=== PATIENT | female | born 1950 | race Asian ===

== ENCOUNTER 2025-03-04 14:26 | Emergency (ER) | payer MEDICARE, SELFPAY ==
[2025-03-04 14:27] VITALS: BMI 25.3
[2025-03-04 14:42] VITALS: BP 193/72; BP 203/78; PULSE 81; RESP 18; TEMP 36.7; O2SAT 96
--- NOTE | 2025-03-04 15:10 | XR_ITS ---
Examination: Duplex scan of the upper extremity, unilateral left Date and time of exam: March 04, 2025, 1535 hours INDICATIONS: Left arm pain and swelling beginning today Technique: Duplex scan of the extremity veins using B-mode/grayscale imaging and Doppler spectral analysis and color flow Attention is directed to internal echogenicity, compression and augmentation involving these veins, color flow assessment, spectral analysis Findings: Major deep venous structures in the extremity demonstrate normal course and caliber. Flow is present in the subclavian axillary brachial basilic veins although noncompressible Radial ulnar veins are open There does appear to be thrombus in the jugular vein Impression: Positive for acute DVT in the left jugular vein..
--- NOTE | 2025-03-04 15:10 | XR_ITS ---
EXAMINATION: AP chest single view TECHNIQUE: AP portable sitting chest single view INDICATIONS: Onset left-sided chest pain today. Date and time: March 04, 2025, 1520 hours FINDINGS: Mild enlargement cardiac contour. Mild vascular congestion. No lobar pneumonia or pulmonary edema IMPRESSION: Mild vascular congestion
--- NOTE | 2025-03-04 15:13 | EDNOTE_ITS ---
ED General RME/HPI General Chief complaint: Back Pain/Injury Stated complaint: LEFT SHOULDER PAIN RADIATING TO BACK WITH FISTULA Time Seen by Provider: 03/04/25 14:51 Arrival date/time: 03/04/25 14:26 CC: Left anterior chest and left upper back pain with swelling HPI patient was lifted up at approximately Leonardo 30 today experienced the pain and swelling afterwards. Patient states pain with inhalation or movement of the left arm. Denies facial swelling swelling in the neck nausea vomiting diarrhea or right sided chest pain. 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 Patient has no other complaints Related Data Home Medications ?Medication ?Instructions ?Recorded ?Confirmed amlodipine 10 mg tablet (Norvasc) 10 mg PO QDAY #0 tab s 06/07/14 09/03/19 linagliptin 5 mg tablet (Tradjenta) 5 mg PO QDAY 11/0209/03/19 atorvastatin 20 mg tablet 20 mg PO HS 09/03/19 0 cetirizine 10 mg tablet (Zyrtec) 10 mg PO QDAY PRN All ergy Symptoms 09/03/19 09/03/19 ergocalciferol (vitamin D2) 1,250 1,250 mcg PO QWEEK 0 09/03/19 09/03/19 mcg (50,000 unit) capsule (Vitamin D2) ferrous sulfate 325 mg (65 mg 325 mg PO BID 09/03/19 0 09/03/19 iron) tablet (iron) Previous Rx's ?Medication ?Instructions ?Recorded insulin glargine 100 unit/mL 8 unit (0.08 mL) subcut H S #0 vials 09/08/19 subcutaneous solution (Lantus U-100 Insulin) oxycodone-acetaminophen 5 mg-325 1 tab PO Q6H PRN Pain Scale 09/08/19 mg tablet 4-10(Mod-Sev #10 tabs apixaban 5 mg (74 tabs) tablets in 5 mg PO BID #74 tab s 03/04/25 a dose pack (Eliquis DVT-PE Treat 30D Start) aspirin 81 mg capsule 81 mg PO QDAY #60 caps 03/04 Allergies Allergy/AdvReac Type Severity Reaction Status Date / Time codeine AdvReac Intermediate NAUSEA,SWEA Verified 03/04/25 14:29 TNG hydrocodone AdvReac Mild NAUSEA/SWEA Verified 03/04/25 14:29 TING Review of Systems Review of Systems Narrative Review of Systems: GEN: No fever, no chills, no weight loss EYES: No discharge, no visual changes, no pain HEENT: No ear pain, no congestion, no sore throat PULM: No shortness of breath, no cough, no congestion CV: No chest pain, no dyspnea on exertion, no palpitations GI: No nausea, no vomiting, no diarrhea, no pain, no constipation : No frequency, no urgency, no dysuria MUSC/SKEL: No joint pain, no back pain SKIN: No rash PSYCH: No hallucinations, no depression HEME/LYMPH: No easy bleeding or bruising tendencies NEURO: No weakness, no headache Past Medical History Past Medical History NEUROLOGIC: Negative Seizures CARDIAC: Positive Cardiac Disorders, Deep Vein Thrombosis and Hypertension; Negative Congestive Heart Failure RESPIRATORY: Negative Chronic Obstructive Pulmonary Disease (COPD) GASTROINTESTINAL: Positive Gastrointestinal Disorders and Ulcer GENITOURINARY: Positive Genitourinary Disorders and Renal Disease MUSCULOSKELETAL: Positive Musculoskeletal Disorders ENDOCRINE: Positive Endocrine Disorders, Diabetes Mellitus Type 1 and Diabetes Mellitus Type 2 HEMATOLOGIC: Positive Blood Disorders and Clotting Problems OTHER HISTORY: Positive Hospitalization and Blood Transfusions; Negative Blood Transfusion Reaction or Anesthesia Reactions Social History SMOKING STATUS: Never smoker ED Exam Narrative Physical exam: [General: Not in any acute distress Head normocephalic HEENT: Within acceptable limits Neck is supple nontender Chest equal chest rise, subtle nonerythematous edema to the left anterior chest just below the distal third of the clavicle. Nontender to palpation. Respiratory: Clear to auscultation no wheezes crackles or rubs CV: Rate rhythm is regular no murmurs rubs or clicks Abdomen is distended secondary to body habitus soft nontender no masses positive bowel sounds all 4 quadrants Back: Subtle edema in the upper back over the apex of the scapula, no e cchymosis. No CVA tenderness no spinous process tenderness from cervical spine thoracic and lumbar spine Skin: Intact no petechiae rash induration ulceration or crepitus Extremities: Moving all extremity against resistance cap refill less than 2 seconds neurosensory intact. Left upper extremity fistula clean dry and intact with good thrill. Neuro: Awake alert oriented x3 Glascow coma 15 no focal deficits] Course Quality Measures none Orders Category Date Time Status Insert IV NOW Care 03/04/25 15:22 Completed US venous doppler UE LT Stat Exams 03/04/25 15:10 Completed XR chest 1V Stat Exams 03/04/25 15:10 Completed CBC Stat Lab 03/04/25 15:19 Completed CMP [Comprehensive Metabolic Panel] Stat Lab 03/04/25 15:19 Completed PT [Prothrombin Time with INR] Stat Lab 03/04/25 15:19 Completed PTT [Partial Thromboplastin Time] Stat Lab 03/04/25 15:19 Completed Apixaban [Eliquis] Med 03/04/25 17:41 Discontinued 10 mg PO X1 ONE Vital Signs Vital signs: Vital Signs Temperature 98.1 F 03/04/25 14:42 Pulse Rate 81 03/04/25 14:42 Respiratory Rate 18 03/04/25 14:42 Blood Pressure 203/78 H 03/04/25 14:42 Pulse Oximetry (%) 96 03/04/25 14:42 Oxygen Delivery Method Room Air 03/04/25 14:42 Discharge Plan Plan Patient Disposition: HOME (Self Care) Patient condition on transfer: Stable Prescriptions/Referrals Prescriptions/Med Rec: New Eliquis DVT-PE Treat 30D Start 5 mg (74 tabs) tablets,dose pack 5 mg PO BID Qty: 74 0RF aspirin 81 mg capsule 81 mg PO QDAY Qty: 60 1RF No Action amlodipine [Norvasc] 10 MG tablet 10 mg PO QDAY Qty: 0 atorvastatin 20 mg Tablet 20 mg PO HS cetirizine [Zyrtec] 10 mg Tablet 10 mg PO QDAY PRN (Reason: Allergy Symptoms) ferrous sulfate [iron] 325 mg (65 mg iron) Tablet 325 mg PO BID ergocalciferol (vitamin D2) [Vitamin D2] 1,250 mcg (50,000 unit) Capsule 1,250 mcg PO QWEEK oxycodone-acetaminophen 5-325 mg Tablet 1 tab PO Q6H MDD 3 PRN (Reason: Pain Scale 4-10(Mod-Sev) Qty: 10 0RF Lantus U-100 Insulin 100 U/ML solution 8 unit Sub-Q HS Qty: 0 0RF Tradjenta 5 mg Tablet 5 mg PO QDAY Referrals: Sami Roldan MD [Physician, Cardiology] - In 1 week Francisca Zhang PA-C [Primary Care Provider, Family Practice] - In 1 week Problem List Clinical Impression: 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 Please notify Dr. Vale on dialysis. Please follow-up with Dr. Roldan community sports coordinator. Any bleeding that cannot be stopped with direct pressure return immediately to the emergency room for reevaluation. Education Materials: DVT Complications, DVT Dc Print Language: Estonian Stand Alone Forms: Marvin Award Info., Work/School Release, Patient Portal Info Letter MONIQUE/CHRISSY Supervising Physician MONIQUE/CHRISSY Supervising Physician: Sidney Guzman ENP [facility] Clinical Information Provided by: patient and family Medical Records reviewed [facility] Meds/Rx considered, not ordered None Labs/Rad/Tests considered, not ordered None Chronic Illness/Social Conditions Explain: ESRD dialysis on thinners secondary to DVT EKG EKG not done Labs Labs: interpreted by ia Lab(s) Interpretation(s): CBC shows no acute leukocytosis anemia thrombocytopenia Coags within acceptable limits CMP shows a BUN of 40 creatinine of 8.7 glucose at 344. Medication Administration(s) Medication Administration History Discontinued Medications Apixaban (Apixaban 2.5 Mg Tablet) 10 mg PO X1 ONE Stop: 03/04/25 17:42 Last Admin: 03/04/25 18:05 Dose: 10 mg Documented By: VERONICA
[2025-03-04 15:47] LABS: Basophils # (Auto) 0.0 Thou/mm3 (0.0-0.2); Basophils % (Auto) 0 % (0-2.5); Eosinophils # (Auto) 0.2 Thou/mm3 (0.0-0.5); Eosinophils % (Auto) 2 % (0-10); Hematocrit 36.5 % (36.0-46.0); Hemoglobin 12.2 g/dL (12.0-16.0); Immature Granulocytes Auto 0.03 Thou/mm3 (0.00-0.00); Lymphocytes # (Auto) 1.5 Thou/mm3 (1.0-4.8); Lymphocytes % (Auto) 17 % (10-50); Mean Corpuscular HGB Conc 33.4 g/dl (31.0-37.0); Mean Corpuscular Hemoglobin 31.8 pg (25.0-35.0); Mean Corpuscular Volume 95 fL (80-100); Monocytes # (Auto) 0.7 Thou/mm3 (0.0-0.8); Monocytes % (Auto) 8 % (0-12); Neutrophils # (Auto) 6.5 Thou/mm3 (1.8-7.7); Neutrophils % (Auto) 73 % (37-80); Nucleated Red Blood Cell # 0.00 Thou/mm3 (0.00-0.00); Nucleated Red Blood Cell % 0 /100 WBC (0); Platelet Count 184 Thou/mm3 (140-440); RDW Standard Deviation 48.4 fL (36.4-46.3); Red Blood Count 3.84 Miln/mm3 (4.00-5.20); White Blood Count 8.8 Thou/mm3 (3.6-11.0)
[2025-03-04 16:04] LABS: Alanine Aminotransferase 15 U/L (10-49); Albumin, Serum 4.3 gm/dL (3.4-4.8); Albumin/Globulin Ratio 1.4 (1.2-2.2); Alkaline Phosphatase 276 U/L (46-116); Anion Gap 11 (7-16); Aspartate Amino Transferase 18 U/L (0-34); BUN/Creatinine Ratio 5 Ratio (12-20); Bilirubin,Total 0.4 mg/dL (0.3-1.2); Blood Urea Nitrogen 40 mg/dL (9-23); Calcium 10.0 mg/dL (8.3-10.6); Calcium (Corrected) 10.0 mg/dL (8.5-10.1); Carbon Dioxide 30.7 mMol/L (20.0-31.0); Chloride 100 mMol/L (98-107); Creatinine (Component) 8.7 mg/dL (0.6-1.3); Estimated Creatinine Clearance 4.6 mL/min (>60); Globulin 3.1 gm/dL (2.3-3.5); Glucose 344 mg/dL (74-106); Osmolality,Calculated 306 (275-295); Potassium 3.9 mMol/L (3.4-5.1); Sodium 142 mMol/L (136-145); Total Protein 7.4 gm/dL (5.7-8.2); eGFR 4 See Note
[2025-03-04 16:27] VITALS: BP 180/63; PULSE 71; RESP 15; TEMP 36.8; O2SAT 97
[2025-03-04 16:28] LABS: INR 0.9 (0.9-1.3); Partial Thromboplastin Time 22.5 Seconds (22.0-36.0); Prothrombin Time 10.0 Seconds (9.0-12.2)
[2025-03-04 18:04] VITALS: BP 182/73; PULSE 78; RESP 15; TEMP 36.9; O2SAT 96
[2025-03-04] MEDS: APIXABAN 2.5 MG TABLET 10 MG PO (18:05)
== END 2025-03-04 18:10 | disposition home or self-care (01) ==
PROVIDERS: Registered Nurse General Practice; Emergency Provider Emergency Medicine; PCP Physician Assistant
DX: I82.C22 Chronic embolism and thrombosis of left internal jugular vein (principal); R07.89 Other chest pain; I12.0 Hypertensive chronic kidney disease with stage 5 chronic kidney disease or end stage renal disease; E11.22 Type 2 diabetes mellitus with diabetic chronic kidney disease; N18.6 End stage renal disease; Z79.01 Long term (current) use of anticoagulants; Z99.2 Dependence on renal dialysis; Z79.84 Long term (current) use of oral hypoglycemic drugs
CPT/HCPCS: 36415; 71045; 80053; 85025; 85610; 85730; 93971; 99283; A9270

== ENCOUNTER 2025-03-07 12:40 | Emergency (ER) | payer MEDICARE, MEDICAID, SELFPAY ==
[2025-03-07] VITALS (9 sets, daily range): BP systolic 94–143; BP diastolic 51–67; PULSE 51–98; RESP 16–22; TEMP 36.4–36.6; O2SAT 95–100
--- NOTE | 2025-03-07 13:17 | PC.NURSE ---
DAUGHTER AT BEDSIDE. DAUGHTER REPORTS PT WAS SEEN HERE WEDNESDAY FOR HEMATOMA TO LEFT UPPER CHEST. STATES SWELLING, BRUISING, AND PAIN ARE WORSENING. NOW RADIATING DOWN LEFT ARM. ALSO REPORTS A DVT IN THE JUGULAR VEIN. SENT HOME ON ELIQUIS AND ASPIRIN, PT ALREADY ON PLAVIX FOR PREVIOUS DVT.
--- NOTE | 2025-03-07 13:36 | XR_ITS ---
EXAMINATION: AP chest single view TECHNIQUE: Upright portable AP chest single view Date and time: March 07, 2025, 1408 hours INDICATIONS: Worsening chest pain and body swelling beginning 3 days ago. FINDINGS: Mild prominence left ventricle Blunting of the left lateral costophrenic angle No interval pneumonia or keshawn pulmonary edema Osseous structures are demineralized IMPRESSION: No interval pneumonia or pulmonary edema
--- NOTE | 2025-03-07 13:36 | EKG_ITS ---
[facility] Test Date: 2025-03-07 Pat Name: KRIS MCGHEE Department: Room: - Gender: Female Lens Block Gauger: : 1950 Requested By: Mo May Order Number: [id number] Reading MD: Mo May Measurements Intervals [place] Rate: 66 P: 60 [place]: 179 QRS: 7 QRSD: 81 T: 65 QT: 444 QTc: 468 Interpretive Statements SINUS RHYTHM WITH FREQUENT VENTRICULAR PREMATURE COMPLEXES ABNORMAL RHYTHM ECG Compared to ECG 05/13/2020 16:57:48 Ventricular premature complex(es) now present T-wave abnormality no longer present /store/S0/[id number].pdf
--- NOTE | 2025-03-07 13:37 | PD.EDWEAK ---
ED Weakness RME/HPI General Chief complaint: Weakness Stated complaint: WEAKNESS, HYPOTENSION Time Seen by Provider: 03/07/25 13:26 Arrival date/time: 03/07/25 12:40 RME / HPI RME / HPI Narrative: DR. MCCALLUM MAIN ED EVALUATION: Patient presents with 3 days after been seen post-fall with incidental left IJ venous thrombosis now with progressive painful left breast swelling. No fever, chills, vomiting, shortness of breath, and difficulty swallowing. Patient currently on combination of Eliquis and Plavix. PMH: Deep Vein Thrombosis, Hypertension, Ulcer, Renal Disease, Diabetes Mellitus Type 2 PSH: AV shunt placement LUE Allergies: Codeine, Hydrocodone Social: Non-smoker, Noo alcoholism, No illicit drug abuse Related Data Home Medications ?Medication ?Instructions ?Recorded ?Confirmed amlodipine 10 mg tablet (Norvasc) 10 mg PO QDAY #0 tabs 06/07/14 09/03/19 linagliptin 5 mg tablet (Tradjenta) 5 mg PO QDAY 11/02/17 09/03/19 atorvastatin 20 mg tablet 20 mg PO HS 09/03/19 09/03/19 cetirizine 10 mg tablet (Zyrtec) 10 mg PO QDAY PRN Allergy Symptoms 09/03/19 09/03/19 ergocalciferol (vitamin D2) 1,250 1,250 mcg PO QWEEK 09/03/19 09/03/19 mcg (50,000 unit) capsule (Vitamin D2) ferrous sulfate 325 mg (65 mg 325 mg PO BID 09/03/19 09/03/19 iron) tablet (iron) Previous Rx's ?Medication ?Instructions ?Recorded insulin glargine 100 unit/mL 8 unit (0.08 mL) subcut HS #0 vials 09/08/19 subcutaneous solution (Lantus U-100 Insulin) oxycodone-acetaminophen 5 mg-325 1 tab PO Q6H PRN Pain Scale 09/08/19 mg tablet 4-10(Mod-Sev #10 tabs apixaban 5 mg (74 tabs) tablets in 5 mg PO BID #74 tabs 03/04/25 a dose pack (Eliquis DVT-PE Treat 30D Start) aspirin 81 mg capsule 81 mg PO QDAY #60 caps 03/04/25 Allergies Allergy/AdvReac Type Severity Reaction Status Date / Time codeine AdvReac Intermediate NAUSEA,SWEA Verified 03/04/25 14:29 TNG hydrocodone AdvReac Mild NAUSEA/SWEA Verified 03/04/25 14:29 TING Review of Systems Review of Systems Systems Reviewed: All systems reviewed, normal except as documented Past Medical History Past Medical History CARDIAC: Positive Cardiac Disorders, Deep Vein Thrombosis and Hypertension GASTROINTESTINAL: Positive Gastrointestinal Disorders and Ulcer GENITOURINARY: Positive Genitourinary Disorders and Renal Disease MUSCULOSKELETAL: Positive Musculoskeletal Disorders ENDOCRINE: Positive Endocrine Disorders, Diabetes Mellitus Type 1 and Diabetes Mellitus Type 2 HEMATOLOGIC: Positive Blood Disorders and Clotting Problems OTHER HISTORY: Positive Hospitalization and Blood Transfusions Surgical History SURGICAL: Positive Knee Sx (RIGHT KNEE REPLACEMENT) ED Exam Narrative Physical exam: GEN. APPEARANCE: The patient is alert awake oriented X-3, c/o moderate left-sided upper chest pain, does not look ill/toxic. Patient has good eye contact. Patient is cooperative. VITALS: All vitals were reviewed and the pulse ox is []%, which is normal according to my interpretation HEENT: Normocephalic, atraumatic and nontender. Pupils are equal and reactive. Oral mucosa is moist. NECK: Supple, nontender, no meningismus, no JVD. There is no thyromegaly and no lymphadenopathy. CHEST: Clear disperity involving left vs right pectoralis region with marked swelling on the left if tge pectoralis insertion and extending inferiorly to mid-sternal region, noted TTP without overlying erythema, induration, or warmth, no deformity and no crepitus. CARDIOVASCULAR: Heart regular rhythm, no murmur or gallop rub or extra beats. LUNGS: Clear to auscultation bilaterally with symmetrical chest rise. No laboring tachypnea or wheezing. No intercostal subcostal retraction. No rales and no rhonchi. ABDOMEN: Soft, flat, nontender to palpation, no guarding or rebound tenderness. There are no abnormal masses palpated. No pulsatile masses or bruits. Active and normal bowel sounds. EXTREMITIES: Normal inspection and palpation. No edema. No cyanosis. Patient is able to move all 4 extremities well SKIN: Warm and dry, no rashes noted. MUSCULOSKELETAL: No lumbar or midline bony tenderness. There is no CVA tenderness. No paraspinal muscle spasm or tenderness. NEURO: Cranial nerves II through XII grossly intact. There are no focal neurologic deficits noted. GCS is 15 PSYCHIATRIC: Patient is in normal mood and affect, cooperative. LYMPHATICS: No major lymphadenopathy noted. Course Course Course Narrative: 22:35 - Dr. Hudson made aware of the patient?s HPI, PMHx, lab and/or radiology results. Discussed treatment plan. Will follow recommendations. Quality Measures none Orders Category Date Time Status CT Screening NOW Care 03/07/25 13:53 Active EKG (ED ONLY) *Do not use* NOW Care 03/07/25 13:[address] angio chest Stat Exams 03/07/25 13:52 Completed EKG (ED Only) Stat Exams 03/07/25 13:36 Draft US carotid duplex Stat Exams 03/07/25 18:11 Completed US venous doppler UE LT Stat Exams 03/07/25 19:30 Completed XR chest 1V portable Stat Exams 03/07/25 13:36 Completed B-Type Natriuretic Peptide Stat Lab 03/07/25 14:54 Completed CBC Stat Lab 03/07/25 14:54 Completed CBC Stat Lab 03/07/25 21:40 Completed Comprehensive Metabolic Panel Stat Lab 03/07/25 14:54 Completed Drug Screen,Urine Stat Lab 03/07/25 15:40 Completed Magnesium Stat Lab 03/07/25 14:54 Completed Partial Thromboplastin Time Stat Lab 03/07/25 14:54 Completed Prothrombin Time with INR Stat Lab 03/07/25 14:54 Completed Troponin I Stat Lab 03/07/25 14:54 Completed Urinalysis, C/S if Indicated Stat Lab 03/07/25 15:40 Completed Metoclopramide Inj [Reglan Inj] Med 03/07/25 19:23 Discontinued 10 mg IVP X1 ONE Morphine* Inj Med 03/07/25 19:23 Discontinued 4 mg IV X1 ONE Morphine* Inj Med 03/07/25 14:02 Discontinued 4 mg IVP X1 ONE Sodium Chloride 0.9% 250 ml [Ns] 250 ml Med 03/07/25 21:20 Discontinued IV 125 mls/hr Sodium Chloride 0.9% 250 ml [Ns] 250 ml Med 03/07/25 22:29 Pending IV 125 mls/hr Vital Signs Vital signs: Vital Signs Temperature 97.7 F 03/07/25 12:45 Pulse Rate 58 L 03/07/25 12:45 Respiratory Rate 19 03/07/25 12:45 Blood Pressure 143/59 H 03/07/25 12:45 Pulse Oximetry (%) 100 03/07/25 12:45 Oxygen Delivery Method Room Air 03/07/25 12:45 Weakness MDM Narrative MDM Narrative:: Scribe Attestation: I, Kate Tavarez, am scribing for and in the presence of Dr. Hernandez. Provider Notation: Although this document has been carefully reviewed, there may still be some phonetic and other typographical errors. These errors are purely grammatical due to imperfections in the software program and should not be construed in any way to compromise the substance of the patient's medical care during this visit. Patient presents with 3 days after been seen post-fall with incidental left IJ venous thrombosis now with progressive painful left breast swelling. No fever, chills, vomiting, shortness of breath, and difficulty swallowing. Please see PE findings. Laboratory markers, including CBC and serum chemistries, demonstrate noted drop in hemoglobin to 8.7 and creatinine at baseline. No hypokalemia evident. CTA of the chest without evidence of intrathoracic subpectoralis muscle hematoma. A compressive dressing was added and after discussion with obiee consultant, recommendations include holding anticoagulant therapy and to maintain compressive dressing with serial circumferential measurements. US of carotid unremarkable, excluding minor plaqeu, with previously noted IJ DVT resolved. LUE venous US is negative. Will check CBC and if no significant change in chest circumference, will discharge to home under daughter's care. Final diagnoses include Chest wall hematoma and Resolution of DVT. Patient data External records reviewed:: [facility] previous records (Reviewed prior ED records from 03/04/25. 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.) and EMS form Clinical information provided by:: patient and EMS Social determinants that could affect healthcare access:: none Patient has the following chronic illnesses:: Deep Vein Thrombosis, Hypertension, Ulcer, Renal Disease, Diabetes Mellitus Type 2 How is presenting disease/condition affected by chronic disease/condition?: exacerbated by Evaluation data The following diagnostics were reviewed and interpreted by me:: lab results, radiology exam(s) and EKG tracing(s) (EKG at 14:47 shows normal sinus rhythm at 66, normal axis, no ectopy, no signs of acute ischemia, per my interpretation.) Lab and/or radiology exams considered but not ordered:: None Interpretation Summary: RADIOLOGY Chest X-Ray: FINDINGS: Mild prominence left ventricle Blunting of the left lateral costophrenic angle No interval pneumonia or keshawn pulmonary edema Osseous structures are demineralized IMPRESSION: No interval pneumonia or pulmonary edema Chest CTA: Findings: Very large subpectoral mass consistent with hematoma, mediolateral dimension 11.5 cm AP dimension 4.7 cm cephalad caudad dimension at least 10.0 cm with extensive surrounding edema in the left breast including skin thickening No thoracic aortic aneurysmal dilatation Main pulmonary artery segment is enlarged to 4.2 cm, no pulmonary artery emboli No pneumothorax pneumonia or pulmonary edema No significant opacification of the left axillary or left brachial vein No visualized liver or splenic lesion No gallstones No common hepatic or common bile duct stone Atrophic kidneys sternal segments thoracic vertebral bodies intact, multiple thoracic Schmorl's nodes Ribs appear intact IMPRESSION: Very large left subpectoral chest mass consistent with hematoma, 11.5 x 4.7 x 10.0 cm with extensive surrounding edema in the left breast, clinical correlation advised Pulmonary artery hypertension Venous Doppler Study: Findings: Major deep venous structures in the extremity demonstrate normal course and caliber. There is no evidence of deep vein thrombosis. Normal color flow and spectral analysis Impression: Negative for DVT. Carotid Doppler Study: Findings: Right peak systolic velocities: Distal internal carotid artery peak systolic velocity is 0.7 M/sec Proximal internal carotid artery peak systolic velocity is 0.7 M/sec Carotid bifurcation peak systolic velocity is 0.4 M/sec External carotid artery peak systolic velocity is 0.8 M/sec Vertebral artery flow is antegrade. Left peak systolic velocities: Distal internal carotid artery peak systolic velocity is 0.5 M/sec Proximal internal carotid artery peak systolic velocity is 0.6 M/sec Carotid bifurcation peak systolic velocity is 0.5 M/sec External carotid artery peak systolic velocity is 0.6 M/sec Vertebral artery flow is antegrade Doppler waveform analysis demonstrates no spectral broadening Impression: Right internal carotid artery demonstrates 0 to 10% stenosis. Left internal carotid artery demonstrates 0 to 10% stenosis. Medications / Prescriptions Medications or Prescriptions considered but not ordered:: None Medication administrations:: Medication Administration History Sodium Chloride (Ns) 250 mls @ 125 mls/hr IV .Q2H ONE Stop: 03/08/25 00:27 Discontinued Medications Sodium Chloride (Ns) 250 mls @ 125 mls/hr IV .Q2H ROLANDO Stop: 04/06/25 21:19 Last Admin: 03/07/25 21:20 Dose: 125 mls/hr Documented By: KIMBERLEE Metoclopramide HCl (Metoclopramide Inj 5 Mg/Ml Vial 2 Ml) 10 mg IVP X1 ONE; Protocol Stop: 03/07/25 19:24 Last Admin: 03/07/25 19:43 Dose: 10 mg Documented By: ANTIONE Morphine Sulfate (Morphine Sulf Inj 4 Mg/Ml Vial) 4 mg IVP X1 ONE Stop: 03/07/25 14:03 Last Admin: 03/07/25 14:35 Dose: 4 mg Documented By: BRONWYN Comments: MED BOTTLE SCANNED AND THEN THROWN AWAY, DOCUMENTATION DID NOT SAVE. Morphine Sulfate (Morphine Sulf Inj 4 Mg/Ml Vial) 4 mg IV X1 ONE Stop: 03/07/25 19:24 Last Admin: 03/07/25 20:10 Dose: 4 mg Documented By: SF See above if any Consultations Consultation(s) initiated? (list below): Yes Consultation #1 (Physician, Specialty, Details): Dr. Hudson made aware of the patient?s HPI, PMHx, lab and/or radiology results. Discussed treatment plan. Time: 13:45 Consultation #2 (Physician, Specialty, Details): Dr. Hudson made aware of the patient?s HPI, PMHx, lab and/or radiology results. Discussed treatment plan. Will follow recommendations. Time: 18:06 Consultation #3 (Physician, Specialty, Details): Dr. Vale made aware of the patient?s HPI, PMHx, lab and/or radiology results. Discussed treatment plan. Will follow recommendations. Time: 21:53 Diagnosis Weakness Differential Diagnosis: acute myocardial infarction, anemia, hypoglycemia, hypothyroidism, rhabdomyolysis, sepsis and dehydration Most likely diagnosis given after review of the tests above:: Chest wall hematoma, Resolution of DVT Admission Indicated Admission indicated?: not indicated Explain why admission is indicated or not indicated:: Patient does not meet admission criteria Admission Request Was there a request for admission?: No Disposition Plan Disposition Plan: Discharge Discharge Attestation Discharge Attestation: The patient and all family members were given an opportunity to ask questions and understood the discharge instructions. Discharge instructions specifically effects, indications for sooner follow up or return to the emergency department, and the expected course of current diagnosis. Patient condition: Stable Critical Care Time Critical Care Time Critical Care Time: Yes Total Critical Care Time (min.): 40 Attestation: The high probability of sudden, clinically significant deterioration in the patient?s condition required the highest level of my preparedness to intervene urgently. The services I provided to this patient were to treat and/or prevent clinically significant deterioration. Services included the following: chart data review, reviewing nursing notes and/or old charts, documentation time, obiee consultant collaboration regarding findings and treatment options, medication orders and management, direct patient care, vital sign assessments and ordering, interpreting and reviewing diagnostic studies and lab tests. Aggregate critical care time includes only time during which I was engaged in work directly related to the patient?s care, as described above, whether at bedside or elsewhere in the Emergency Department. It did not include time spent performing other reported procedures or the services of residents, students, nurses or physician assistants. Discharge Plan Plan Patient Disposition: HOME (Self Care) Prescriptions/Referrals Prescriptions/Med Rec: No Action amlodipine [Norvasc] 10 MG tablet 10 mg PO QDAY Qty: 0 atorvastatin 20 mg Tablet 20 mg PO HS cetirizine [Zyrtec] 10 mg Tablet 10 mg PO QDAY PRN (Reason: Allergy Symptoms) ferrous sulfate [iron] 325 mg (65 mg iron) Tablet 325 mg PO BID ergocalciferol (vitamin D2) [Vitamin D2] 1,250 mcg (50,000 unit) Capsule 1,250 mcg PO QWEEK oxycodone-acetaminophen 5-325 mg Tablet 1 tab PO Q6H MDD 3 PRN (Reason: Pain Scale 4-10(Mod-Sev) Qty: 10 0RF Lantus U-100 Insulin 100 U/ML solution 8 unit Sub-Q HS Qty: 0 0RF Tradjenta 5 mg Tablet 5 mg PO QDAY Eliquis DVT-PE Treat 30D Start 5 mg (74 tabs) tablets,dose pack 5 mg PO BID Qty: 74 0RF aspirin 81 mg capsule 81 mg PO QDAY Qty: 60 1RF Referrals: Francisca Zhang PA-C [Primary Care Provider, Family Practice] - In 1 week Problem List Clinical Impression: Chest wall hematoma, DVT (deep venous thrombosis) Patient/Caregiver Discharge Instructions Print Language: Sixto Stand Alone Forms: Katarina Award Info., Patient Portal Info Letter
--- NOTE | 2025-03-07 13:52 | XR_ITS ---
Examination: CTA chest with intravenous contrast 2-D reconstructions 3-D reconstructions, vascular Date and time of exam: March 07, 2025, 1640 hours INDICATIONS: Onset left upper chest swelling beginning 3 days ago CTDI: vol (mGy) 11.4 DLP: (mGycm) 442 Technique: Multiple axial sections of the thorax have been obtained. 3 mm slice thickness, from below the hemidiaphragms to above the apices of the lungs. Mediastinal and lung density settings have been obtained. 2-D sagittal and coronal reconstructions. 3-D angiographic renderings, 3-D volume renderings, 3D post processing, vascular maximum intensity projections obtained. Contrast administered is 60 cc Isovue-370. Low dose protocols were performed. One or more of the following dose reduction techniques were used; automated exposure control, adjustment of the mA and/or KV according to patient size, use of iterative reconstruction technique. Findings: Very large subpectoral mass consistent with hematoma, mediolateral dimension 11.5 cm AP dimension 4.7 cm cephalad caudad dimension at least 10.0 cm with extensive surrounding edema in the left breast including skin thickening No thoracic aortic aneurysmal dilatation Main pulmonary artery segment is enlarged to 4.2 cm, no pulmonary artery emboli No pneumothorax pneumonia or pulmonary edema No significant opacification of the left axillary or left brachial vein No visualized liver or splenic lesion No gallstones No common hepatic or common bile duct stone Atrophic kidneys sternal segments thoracic vertebral bodies intact, multiple thoracic Schmorl's nodes Ribs appear intact IMPRESSION: Very large left subpectoral chest mass consistent with hematoma, 11.5 x 4.7 x 10.0 cm with extensive surrounding edema in the left breast, clinical correlation advised Pulmonary artery hypertension
[2025-03-07] MEDS: MORPHINE SULF INJ 4 MG/ML VIAL IVP (14:35)
[2025-03-07 15:16] LABS: Basophils # (Auto) 0.0 Thou/mm3 (0.0-0.2); Basophils % (Auto) 0 % (0-2.5); Eosinophils # (Auto) 0.0 Thou/mm3 (0.0-0.5); Eosinophils % (Auto) 0 % (0-10); Hematocrit 26.8 % (36.0-46.0); Immature Granulocytes Auto 0.19 Thou/mm3 (0.00-0.00); Lymphocytes # (Auto) 1.7 Thou/mm3 (1.0-4.8); Lymphocytes % (Auto) 13 % (10-50); Mean Corpuscular HGB Conc 32.5 g/dl (31.0-37.0); Mean Corpuscular Hemoglobin 31.9 pg (25.0-35.0); Mean Corpuscular Volume 98 fL (80-100); Monocytes # (Auto) 1.1 Thou/mm3 (0.0-0.8); Monocytes % (Auto) 8 % (0-12); Neutrophils # (Auto) 10.7 Thou/mm3 (1.8-7.7); Neutrophils % (Auto) 78 % (37-80); Nucleated Red Blood Cell # 0.00 Thou/mm3 (0.00-0.00); Nucleated Red Blood Cell % 0 /100 WBC (0); Platelet Count 215 Thou/mm3 (140-440); RDW Standard Deviation 49.2 fL (36.4-46.3); Red Blood Count 2.73 Miln/mm3 (4.00-5.20); White Blood Count 13.8 Thou/mm3 (3.6-11.0)
[2025-03-07 15:32] LABS: Hemoglobin 8.7 g/dL (12.0-16.0)
[2025-03-07 15:37] LABS: INR 1.0 (0.9-1.3); Partial Thromboplastin Time 29.2 Seconds (22.0-36.0); Prothrombin Time 11.1 Seconds (9.0-12.2)
[2025-03-07 15:42] LABS: B-Type Natriuretic Peptide 68 pg/mL (0-100)
[2025-03-07 15:45] LABS: Alanine Aminotransferase 10 U/L (10-49); Albumin, Serum 3.5 gm/dL (3.4-4.8); Albumin/Globulin Ratio 1.4 (1.2-2.2); Alkaline Phosphatase 200 U/L (46-116); Anion Gap 10 (7-16); Aspartate Amino Transferase 11 U/L (0-34); BUN/Creatinine Ratio 4 Ratio (12-20); Bilirubin,Total 0.5 mg/dL (0.3-1.2); Blood Urea Nitrogen 24 mg/dL (9-23); Calcium 9.3 mg/dL (8.3-10.6); Calcium (Corrected) 9.7 mg/dL (8.5-10.1); Carbon Dioxide 28.9 mMol/L (20.0-31.0); Chloride 103 mMol/L (98-107); Creatinine (Component) 6.4 mg/dL (0.6-1.3); Globulin 2.5 gm/dL (2.3-3.5); Glucose 190 mg/dL (74-106); Magnesium 2.1 mg/dL (1.6-2.6); Osmolality,Calculated 292 (275-295); Potassium 4.4 mMol/L (3.4-5.1); Sodium 142 mMol/L (136-145); Total Protein 6.0 gm/dL (5.7-8.2); eGFR 6 See Note
[2025-03-07 15:48] LABS: Troponin I 0.052 ng/mL (0.0-0.045)
[2025-03-07 16:26] LABS: Collection Type, Urine Clean Catch
[2025-03-07 16:40] LABS: Bilirubin,Urine Negative (Negative); Blood,Urine 2+ (Negative); Clarity,Urine Clear (Clear/Hazy); Color,Urine Yellow (Lt Yel-Yel); Culture Indicated,Urine Not Indicated; Glucose, Urine 2+ (Negative); Ketones,Urine Negative (Negative); Leukocyte Esterase,Urine Negative (Negative); Nitrite,Urine Negative (Negative); PH,Urine 7.5 (5.0-7.0); Protein,Urine 2+ (Neg - Trace); RBC,Urine 22 /hpf (0-3); Specific Gravity,Urine 1.016 (1.001-1.035); Squamous Epithelial Cell,Urine < 1 /hpf (0-5); Urobilinogen,Urine Negative mg/dL (0.0-1.0); WBC,Urine 4 /hpf (0-5)
--- NOTE | 2025-03-07 16:43 | PC.NURSE ---
PT TAKEN TO CT.
[2025-03-07 16:46] LABS: Amphetamine/Methamp Scrn,U Negative (Negative); Barbiturate Screen,Urine Negative (Negative); Benzodiazepines Screen,Urine Negative (Negative); Benzoylecgonine Screen, Ur Negative (Negative); Fentanyl Screen,Urine Negative (Negative); Opiate Screen,Urine Negative (Negative); THC Screen,Urine Negative (Negative)
--- NOTE | 2025-03-07 18:11 | XR_ITS ---
Examination: Carotid arterial duplex scan, ultrasound. Date and time of exam: March 07, 2025, 2006 hours INDICATIONS: Left arm DVT March 04, 2025, worsening swelling of the chest and bruising in the chest according to the patient with large subpectoral chest mass consistent with hematoma on CT chest examination today Technique: Multiple sonographic images have been obtained of the carotid arteries and vertebral arteries, B-mode/grayscale imaging and Doppler spectral analysis and color flow Peak systolic and diastolic velocities have been recorded. Systolic diastolic ratios have been calculated. Findings: Right peak systolic velocities: Distal internal carotid artery peak systolic velocity is 0.7 M/sec Proximal internal carotid artery peak systolic velocity is 0.7 M/sec Carotid bifurcation peak systolic velocity is 0.4 M/sec External carotid artery peak systolic velocity is 0.8 M/sec Vertebral artery flow is antegrade. Left peak systolic velocities: Distal internal carotid artery peak systolic velocity is 0.5 M/sec Proximal internal carotid artery peak systolic velocity is 0.6 M/sec Carotid bifurcation peak systolic velocity is 0.5 M/sec External carotid artery peak systolic velocity is 0.6 M/sec Vertebral artery flow is antegrade Doppler waveform analysis demonstrates no spectral broadening Impression: Right internal carotid artery demonstrates 0 to 10% stenosis. Left internal carotid artery demonstrates 0 to 10% stenosis.
--- NOTE | 2025-03-07 19:30 | XR_ITS ---
Examination: Duplex scan of the upper extremity, unilateral left Date and time of exam: March 07, 2025, 2020 hours INDICATIONS: Left arm DVT March 04, 2025, worsening swelling in the chest large left chest hematoma on CT examination today Technique: Duplex scan of the extremity veins using B-mode/grayscale imaging and Doppler spectral analysis and color flow Attention is directed to internal echogenicity, compression and augmentation involving these veins, color flow assessment, spectral analysis Findings: Major deep venous structures in the extremity demonstrate normal course and caliber. There is no evidence of deep vein thrombosis. Normal color flow and spectral analysis Impression: Negative for DVT..
[2025-03-07] MEDS: METOCLOPRAMIDE INJ 5 MG/ML VIAL 2 ML 10 MG IVP (19:43)
[2025-03-07] MEDS: MORPHINE SULF INJ 4 MG/ML VIAL IV (20:10)
[2025-03-07] MEDS: SODIUM CHLORIDE 0.9% 250 ML 250 ML 125 ML IV (21:20)
[2025-03-07 21:57] LABS: Basophils # (Auto) 0.0 Thou/mm3 (0.0-0.2); Basophils % (Auto) 0 % (0-2.5); Eosinophils # (Auto) 0.0 Thou/mm3 (0.0-0.5); Eosinophils % (Auto) 0 % (0-10); Hematocrit 23.4 % (36.0-46.0); Immature Granulocytes Auto 0.21 Thou/mm3 (0.00-0.00); Lymphocytes # (Auto) 2.0 Thou/mm3 (1.0-4.8); Lymphocytes % (Auto) 14 % (10-50); Mean Corpuscular HGB Conc 32.5 g/dl (31.0-37.0); Mean Corpuscular Hemoglobin 32.2 pg (25.0-35.0); Mean Corpuscular Volume 99 fL (80-100); Monocytes # (Auto) 1.1 Thou/mm3 (0.0-0.8); Monocytes % (Auto) 8 % (0-12); Neutrophils # (Auto) 11.2 Thou/mm3 (1.8-7.7); Neutrophils % (Auto) 77 % (37-80); Nucleated Red Blood Cell # 0.00 Thou/mm3 (0.00-0.00); Nucleated Red Blood Cell % 0 /100 WBC (0); Platelet Count 228 Thou/mm3 (140-440); RDW Standard Deviation 50.8 fL (36.4-46.3); Red Blood Count 2.36 Miln/mm3 (4.00-5.20); White Blood Count 14.5 Thou/mm3 (3.6-11.0)
[2025-03-07 22:30] LABS: Hemoglobin 7.6 g/dL (12.0-16.0)
--- NOTE | 2025-03-07 22:56 | PC.NURSE ---
MD came to bedside to review all studies at this time MD will DC home and Pt is to f/u with PCP neph consulted and on board
== END 2025-03-07 23:10 | disposition home or self-care (01) ==
PROVIDERS: Emergency Provider Emergency Medicine; PCP Physician Assistant
DX: S20.219A Contusion of unspecified front wall of thorax, initial encounter (principal); Z86.718 Personal history of other venous thrombosis and embolism; I49.3 Ventricular premature depolarization; I65.23 Occlusion and stenosis of bilateral carotid arteries; I10 Essential (primary) hypertension; Z79.01 Long term (current) use of anticoagulants; R22.2 Localized swelling, mass and lump, trunk; I27.21 Secondary pulmonary arterial hypertension
CPT/HCPCS: 36415; 71045; 71275; 80053; 80307; 81001; 83735; 83880; 84484; 85025; 85610; 85730; 93005; 93880; 93971; 96361; 96374; 96375; 99284; A4649; J2270; J2765; J7050; Q9967

== ENCOUNTER 2025-03-12 09:03 | Emergency (ER) | payer MEDICARE, MEDICAID, SELFPAY ==
[2025-03-12] VITALS (25 sets, daily range): BP systolic 134–185; BP diastolic 55–74; PULSE 7–100; RESP 16–22; TEMP 36.3–37.1; O2SAT 95–98; BMI 25.2
--- NOTE | 2025-03-12 09:21 | PD.EDRME ---
Rapid Medical Screening Exam RME Arrival date/time: 03/12/25 09:03 75-year-old female with a history of hyperlipidemia, hypertension, type 2 diabetes, end-stage renal disease on dialysis, was sent to the emergency room by dialysis for low hemoglobin level. The patient has a history of a large hematoma in her chest. Her symptoms today are weakness, dizziness, lightheadedness, pain in her chest. I have greeted and performed a focused initial assessment of this patient. A comprehensive ED assessment and evaluation of the patient, analysis of all test results, and completion of the medical decision making process will be conducted by additional ED providers. Chief Complaint: Dizziness Time Seen by Provider: 03/12/25 09:10 Vital signs: Vital Signs Temperature 98.7 F 03/12/25 09:13 Pulse Rate 100 03/12/25 09:13 Respiratory Rate 22 H 03/12/25 09:13 Blood Pressure 177/72 H 03/12/25 09:13 Pulse Oximetry (%) 98 03/12/25 09:13 Oxygen Delivery Method Room Air 03/12/25 09:13 Vital signs reviewed by provider: Yes Exam: Strong and regular rhythm S1 and S2 noted Clear bilateral lung sounds The patient has hematoma and bruising all through her chest Clinical Impression: Anemia/hematoma and chest
--- NOTE | 2025-03-12 09:23 | EKG_ITS ---
[facility] Test Date: 2025-03-12 Pat Name: KRIS MCGHEE Department: Room: - Gender: Female [employer]: : 1950 Requested By: Naresh Jean Order Number: [id number] Reading MD: Naresh Jean Measurements Intervals [place] Rate: 83 P: 55 VT: 216 QRS: -27 QRSD: 101 T: 92 QT: 378 QTc: 444 Interpretive Statements SINUS RHYTHM WITH SINUS ARRHYTHMIA WITH FIRST DEGREE AV BLOCK BORDERLINE LEFT AXIS DEVIATION [QRS AXIS < -20] NONSPECIFIC ST & T-WAVE ABNORMALITY Compared to ECG 03/07/2025 14:47:26 First degree AV block now present T-wave abnormality now present Ventricular premature complex(es) no longer present /store/S0/[id number]/ecg/[id number].pdf
--- NOTE | 2025-03-12 09:23 | XR_ITS ---
EXAMINATION: AP chest single view TECHNIQUE: AP upright portable chest single view Date and time: March 12, 2025, 0942 hours, comparison March 07, 2025 INDICATIONS: Dizziness today with chest pain FINDINGS: Mild enlargement cardiac contour Ectatic enlarged thoracic aorta Diffuse mild density in the left chest Mild vascular congestion Pleural disease along the right lateral thoracic wall IMPRESSION: Findings consistent with diffuse left lung pneumonia Trachea is deviated to the right which may be a function of projection, recommend true PA chest lateral follow-up
[2025-03-12 09:52] LABS: Basophils # (Auto) 0.1 Thou/mm3 (0.0-0.2); Basophils % (Auto) 0 % (0-2.5); Eosinophils # (Auto) 0.2 Thou/mm3 (0.0-0.5); Eosinophils % (Auto) 2 % (0-10); Hematocrit 23.1 % (36.0-46.0); Immature Granulocytes Auto 0.21 Thou/mm3 (0.00-0.00); Lymphocytes # (Auto) 1.6 Thou/mm3 (1.0-4.8); Lymphocytes % (Auto) 14 % (10-50); Mean Corpuscular HGB Conc 32.5 g/dl (31.0-37.0); Mean Corpuscular Hemoglobin 32.6 pg (25.0-35.0); Mean Corpuscular Volume 100 fL (80-100); Monocytes # (Auto) 1.1 Thou/mm3 (0.0-0.8); Monocytes % (Auto) 10 % (0-12); Neutrophils # (Auto) 8.0 Thou/mm3 (1.8-7.7); Neutrophils % (Auto) 72 % (37-80); Nucleated Red Blood Cell # 0.00 Thou/mm3 (0.00-0.00); Nucleated Red Blood Cell % 0 /100 WBC (0); Platelet Count 339 Thou/mm3 (140-440); RDW Standard Deviation 51.3 fL (36.4-46.3); Red Blood Count 2.30 Miln/mm3 (4.00-5.20); White Blood Count 11.2 Thou/mm3 (3.6-11.0)
[2025-03-12 09:53] LABS: Hemoglobin 7.5 g/dL (12.0-16.0)
[2025-03-12 10:12] LABS: Alanine Aminotransferase 65 U/L (10-49); Albumin, Serum 4.3 gm/dL (3.4-4.8); Albumin/Globulin Ratio 1.3 (1.2-2.2); Alkaline Phosphatase 216 U/L (46-116); Anion Gap 12 (7-16); Aspartate Amino Transferase 15 U/L (0-34); BUN/Creatinine Ratio 3 Ratio (12-20); Bilirubin,Total 1.2 mg/dL (0.3-1.2); Blood Urea Nitrogen 27 mg/dL (9-23); Calcium 10.3 mg/dL (8.3-10.6); Calcium (Corrected) 10.3 mg/dL (8.5-10.1); Carbon Dioxide 27.1 mMol/L (20.0-31.0); Chloride 101 mMol/L (98-107); Creatinine (Component) 7.8 mg/dL (0.6-1.3); Estimated Creatinine Clearance 5.3 mL/min (>60); Free T4 (Free Thyroxine) 1.05 ng/dL (0.89-1.76); Globulin 3.2 gm/dL (2.3-3.5); Glucose 162 mg/dL (74-106); Lipase 77 U/L (12-53); Magnesium 2.3 mg/dL (1.6-2.6); Osmolality,Calculated 288 (275-295); Potassium 4.7 mMol/L (3.4-5.1); Sodium 140 mMol/L (136-145); Thyroid Stimulating Hormone 3.30 uIU/mL (0.55-4.78); Total Protein 7.5 gm/dL (5.7-8.2); eGFR 5 See Note
[2025-03-12 10:21] LABS: Troponin I 0.301 ng/mL (0.0-0.045)
[2025-03-12 10:26] LABS: B-Type Natriuretic Peptide 325 pg/mL (0-100)
--- NOTE | 2025-03-12 10:58 | PD.EDDIZZY ---
ED Dizzyness RME/HPI General Chief Complaint: Dizziness Stated Complaint: LOW HGB, NEEDS BLOOD TRANSFUSION, DIZZY, WEAK Time Seen by Provider: 03/12/25 09:10 Arrival date/time: 03/12/25 09:03 RME / HPI RME / HPI Narrative: 03/12/25 09:03 75-year-old female with a history of hyperlipidemia, hypertension, type 2 diabetes, end-stage renal disease on dialysis, was sent to the emergency room by dialysis for low hemoglobin level. The patient has a history of a large hematoma in her chest. Her symptoms today are weakness, dizziness, lightheadedness, pain in her chest. I have greeted and performed a focused initial assessment of this patient. A comprehensive ED assessment and evaluation of the patient, analysis of all test results, and completion of the medical decision making process will be conducted by additional ED providers. DR. SCHMITZ MAIN ED EVALUATION: 75 year old female with history of hypertension, ESRD on hemodialysis T//Wed, diabetes, and left IJ venous thrombosis dx 03/04/2025 started on Eliquis presents to the ED for evaluation of global weakness and dizziness beginning 5 days ago. Accompanied by decreased appetite, nausea, and vomiting. Reportedly had been evaluated here on 03/04 for left upper back/chest pain and diagnosed with a DVT, started on Eliquis. Daughter states shortly after starting the Eliquis they noticed a large non-traumatic chest hematoma and returned to the ED on 03/07/2025. During that time noted to have dizziness and weakness and hemoglobin was 7.5. State patients symptoms improved after IV fluids and medications and was discharged home. They followed up with internal communications intern Dr. Vale who performed outpatient labs and called today stating her hemoglobin is 6.0. Today, the patient denies any chest pain, cough, shortness of breath. Daughter states the patient only took 3-days of the Eliquis and also stopped her Plavix. The daughter mentioned the patient in the last week is not tolerating her dialysis treatments and is only getting 1-1.5 hours of a 3-hour treatments due to feeling dizzy, nauseated, and vomiting. Exam: Strong and regular rhythm S1 and S2 noted Clear bilateral lung sounds The patient has hematoma and bruising all through her chest Impression: Anemia/hematoma and chest Related Data Home Medications ?Medication ?Instructions ?Recorded ?Confirmed amlodipine 10 mg tablet (Norvasc) 10 mg PO QDAY #0 tabs 06/07/14 09/03/19 linagliptin 5 mg tablet (Tradjenta) 5 mg PO QDAY 11/02/17 09/03/19 atorvastatin 20 mg tablet 20 mg PO HS 09/03/19 09/03/19 cetirizine 10 mg tablet (Zyrtec) 10 mg PO QDAY PRN Allergy Symptoms 09/03/19 09/03/19 ergocalciferol (vitamin D2) 1,250 1,250 mcg PO QWEEK 09/03/19 09/03/19 mcg (50,000 unit) capsule (Vitamin D2) ferrous sulfate 325 mg (65 mg 325 mg PO BID 09/03/19 09/03/19 iron) tablet (iron) Previous Rx's ?Medication ?Instructions ?Recorded insulin glargine 100 unit/mL 8 unit (0.08 mL) subcut HS #0 vials 09/08/19 subcutaneous solution (Lantus U-100 Insulin) oxycodone-acetaminophen 5 mg-325 1 tab PO Q6H PRN Pain Scale 09/08/19 mg tablet 4-10(Mod-Sev #10 tabs apixaban 5 mg (74 tabs) tablets in 5 mg PO BID #74 tabs 03/04/25 a dose pack (Eliquis DVT-PE Treat 30D Start) aspirin 81 mg capsule 81 mg PO QDAY #60 caps 03/04/25 Allergies Allergy/AdvReac Type Severity Reaction Status Date / Time codeine AdvReac Intermediate NAUSEA,SWEA Verified 03/12/25 09:07 TNG hydrocodone AdvReac Mild NAUSEA/SWEA Verified 03/12/25 09:07 TING Review of Systems Review of Systems Systems Reviewed: All systems reviewed, normal except as documented Past Medical History Past Medical History CARDIAC: Positive Cardiac Disorders, Deep Vein Thrombosis and Hypertension GASTROINTESTINAL: Positive Gastrointestinal Disorders and Ulcer GENITOURINARY: Positive Genitourinary Disorders and Renal Disease MUSCULOSKELETAL: Positive Musculoskeletal Disorders ENDOCRINE: Positive Endocrine Disorders and Diabetes Mellitus Type 2 HEMATOLOGIC: Positive Blood Disorders and Clotting Problems OTHER HISTORY: Positive Hospitalization and Blood Transfusions Social History SMOKING STATUS: Never smoker ED Exam Narrative Physical exam: Generally the patient is alert and in no obvious distress. Chest shows large bilateral chest wall and breast contusion that is soft and nonwarm to the touch, extremities show strong palpable thrill to left upper extremity dialysis fistula, heart regular rate rhythm, lungs clear to auscultation equal bilaterally, abdomen is soft nondistended and nontender. Neurologic exam shows Tarah Coma Scale of 15 without focal motor deficit. Course Quality Measures none Orders Category Date Time Status EKG (ED ONLY) *Do not use* NOW Care 03/12/25 09:23 Completed IV [Insert IV] NOW Care 03/12/25 10:38 Active Transfuse,blood/blood products NOW Care 03/12/25 10:51 Active EKG (ED Only) Stat Exams 03/12/25 09:23 Draft XR chest 1V portable Stat Exams 03/12/25 09:23 Completed B-Type Natriuretic Peptide Stat Lab 03/12/25 09:34 Completed CBC Stat Lab 03/12/25 09:34 Completed CMP [Comprehensive Metabolic Panel] Stat Lab 03/12/25 09:34 Completed Free T4 (Free Thyroxine) Stat Lab 03/12/25 09:34 Completed Lipase Stat Lab 03/12/25 09:34 Completed Magnesium Stat Lab 03/12/25 09:34 Completed TSH [Thyroid Stimulating Hormone] Stat Lab 03/12/25 09:34 Completed Troponin I Stat Lab 03/12/25 09:34 Completed Troponin I Stat Lab 03/12/25 10:58 Completed Type and Screen Stat Lab 03/12/25 09:34 Results UA [Urinalysis] Stat Lab 03/12/25 09:20 Ordered Urine Culture Stat Lab 03/12/25 09:20 Ordered prbc [Red Blood Cells] Stat Lab 03/12/25 09:34 Results Vital Signs Vital signs: Vital Signs Temperature 98.7 F 03/12/25 09:13 Pulse Rate 100 03/12/25 09:13 Respiratory Rate 22 H 03/12/25 09:13 Blood Pressure 177/72 H 03/12/25 09:13 Pulse Oximetry (%) 98 03/12/25 09:13 Oxygen Delivery Method Room Air 03/12/25 09:13 Pulse ox is 98% on room air which is adequate. Dizziness MDM Narrative MDM Narrative:: I, Lin Bell, am scribing for and in the presence of Dr. Schmitz. I interpreted all labs. Hemoglobin 5 days ago was 0.05. Today first troponin was 0.301 and a troponin drawn 2 hours after that had gone down to 0.274. Potassium is normal. Hemoglobin today was 7.5 and 5 days ago was 7.6. Patient has symptomatic anemia. The patient's GI specialist, Dr. Hudson called me and asked me to transfuse this patient with 2 units of packed RBCs for symptomatic anemia. I agree with this request and the patient will be transfused with 2 units of packed RBCs. Patient is very comfortable and resting without associated chest pain. Patient is currently off of both Plavix and Eliquis. She has an appointment with her vascular surgeon in 2 days and they are to discuss with the vascular surgeon when to go back on those medications due to the fact that the patient has such a large chest wall contusion. Patient data External records reviewed:: [facility] previous records Clinical information provided by:: patient and family Social determinants that could affect healthcare access:: none Patient has the following chronic illnesses:: hypertension, renal disease on hemodialysis, diabetes, left IJ venous thrombosis dx 03/04/2025 started on Eliquis. How is presenting disease/condition affected by chronic disease/condition?: exacerbated by Evaluation data The following diagnostics were reviewed and interpreted by me:: lab results, radiology exam(s) and EKG tracing(s) Lab and/or radiology exams considered but not ordered:: None Interpretation Summary: Ordering Physician: Naresh Cosat Date of Service: 03/12/25 Procedure(s): XR chest 1V portable Accession Number(s): [id number] cc: Naresh Costa; Saurabh Arevalo MD; Francisca Zhang PA-C~ EXAMINATION: AP chest single view TECHNIQUE: AP upright portable chest single view Date and time: March 12, 2025, 0942 hours, comparison March 07, 2025 INDICATIONS: Dizziness today with chest pain FINDINGS: Mild enlargement cardiac contour Ectatic enlarged thoracic aorta Diffuse mild density in the left chest Mild vascular congestion Pleural disease along the right lateral thoracic wall IMPRESSION: Findings consistent with diffuse left lung pneumonia Trachea is deviated to the right which may be a function of projection, recommend true PA chest lateral follow-up Dictated By: Saurabh Arevalo MD Signed By: <Electronically signed by Saurabh Arevalo MD in OV> 03/12/25 1010 Medications / Prescriptions Medications or Prescriptions considered but not ordered:: None Medication administrations:: None Consultations Consultation(s) initiated? (list below): Yes Consultation #1 (Physician, Specialty, Details): I spoke with GI Dr. Hudson. Discussed patients PMHx, HPI, ED course, exam findings, labs, and radiology results. Time: 11:03 Diagnosis Most likely diagnosis given after review of the tests above:: None Admission Indicated Admission indicated?: not indicated Admission Request Was there a request for admission?: No Disposition Plan Disposition Plan: Discharge Discharge Attestation Discharge Attestation: The patient and all family members were given an opportunity to ask questions and understood the discharge instructions. Discharge instructions specifically effects, indications for sooner follow up or return to the emergency department, and the expected course of current diagnosis. Patient condition: Stable Discharge Plan Plan Patient Disposition: HOME (Self Care) Prescriptions/Referrals Prescriptions/Med Rec: No Action amlodipine [Norvasc] 10 MG tablet 10 mg PO QDAY Qty: 0 atorvastatin 20 mg Tablet 20 mg PO HS cetirizine [Zyrtec] 10 mg Tablet 10 mg PO QDAY PRN (Reason: Allergy Symptoms) ferrous sulfate [iron] 325 mg (65 mg iron) Tablet 325 mg PO BID ergocalciferol (vitamin D2) [Vitamin D2] 1,250 mcg (50,000 unit) Capsule 1,250 mcg PO QWEEK oxycodone-acetaminophen 5-325 mg Tablet 1 tab PO Q6H MDD 3 PRN (Reason: Pain Scale 4-10(Mod-Sev) Qty: 10 0RF Lantus U-100 Insulin 100 U/ML solution 8 unit Sub-Q HS Qty: 0 0RF Tradjenta 5 mg Tablet 5 mg PO QDAY Eliquis DVT-PE Treat 30D Start 5 mg (74 tabs) tablets,dose pack 5 mg PO BID Qty: 74 0RF aspirin 81 mg capsule 81 mg PO QDAY Qty: 60 1RF Referrals: Francisca Zhang PA-C [Primary Care Provider, Family Practice] - In 1 week Problem List Clinical Impression: Anemia, Renal failure, Chest wall contusion Patient/Caregiver Discharge Instructions Education Materials: Anemia, ED Chest Wall Contusion Additional Instructions: Discharge after transfusion. Keep your follow-up appointment with your vascular surgeon in 2 days. Return to ER as needed. Print Language: Kittitian Stand Alone Forms: Katarina Award Info., Patient Portal Info Letter
[2025-03-12 12:07] LABS: Troponin I 0.274 ng/mL (0.0-0.045)
== END 2025-03-12 20:44 | disposition home or self-care (01) ==
PROVIDERS: Nurse Practitioner Family; Emergency Provider Emergency Medicine; PCP Physician Assistant
DX: E11.22 Type 2 diabetes mellitus with diabetic chronic kidney disease (principal); N18.6 End stage renal disease; D63.1 Anemia in chronic kidney disease; M79.81 Nontraumatic hematoma of soft tissue; I12.0 Hypertensive chronic kidney disease with stage 5 chronic kidney disease or end stage renal disease; I44.0 Atrioventricular block, first degree; Z99.2 Dependence on renal dialysis; Z79.4 Long term (current) use of insulin
CPT/HCPCS: 36415; 36430; 71045; 80053; 81001; 83690; 83735; 83880; 84439; 84443; 84484; 85025; 86850; 86900; 86901; 86923; 87086; 90935; 93005; 99284; P9016; G0257